=== PATIENT | female | born 1980 | race American Indian/Alaskan Native ===

== ENCOUNTER 2018-04-05 06:29 | Day surgery (SDC) | payer BC ==
[~2018-04-05 06:29] MED LIST: LACTATED RINGERS 1,000 ML IV SCH; VERSED IV NR
[2018-04-05] MEDS ORDERED: ANCEF/STERILE WATER 2 GM/20 ML IV NR (07:00)
[2018-04-05] MEDS ORDERED: NACL BACTERIOSTATIC INFILTRATI ONE (07:06)
[2018-04-05] MEDS ORDERED: DIPRIVAN 10 MG/ML IV ONE ×2 (07:30→08:51)
[2018-04-05] MEDS ORDERED: DILAUDID ONE ×2 (07:30→09:54)
[2018-04-05] MEDS ORDERED: XYLOCAINE MPF 2% ONE ×2 (07:30→08:53)
[2018-04-05] MEDS ORDERED: XYLOCAINE 1% 20 mL ONE (07:35)
[2018-04-05] MEDS ORDERED: ADRENALIN ONE (07:35)
[2018-04-05] MEDS ORDERED: MARCAINE 0.5% 0 ML INFILTRATI ONE (07:35)
--- NOTE | 2018-04-05 07:39 | Anesthesia Day of Surgery ---
Anesthesia Day of Surgery - Day of Surgery Patient Examined: Yes Patient H&P Reviewed: Yes Patient is NPO: Yes Beta Blockers: No Cardiac Clearance: No (n/a) Pulmonary Clearance: No (n/a)
--- NOTE | 2018-04-05 07:42 | Anesthesia Consultation ---
Anesthesia Consult and Med Hx Date of service: 04/05/18 - Airway Anesthetic Teeth Evaluation: Good ROM Head & Neck: Adequate Mental/Hyoid Distance: Adequate Mallampati Class: Class I Intubation Access Assessment: Good - Pulmonary Exam CTA: Yes - Cardiac Exam Cardiac Exam: RRR - Pre-Operative Health Status ASA Pre-Surgery Classification: ASA2 Proposed Anesthetic Plan: General - Pulmonary Hx Smoking: No Hx Asthma: No Hx Respiratory Symptoms: No SOB: No COPD: No Home Oxygen Therapy: No Hx Pneumonia: No Hx Sleep Apnea: No - Cardiovascular System Hx Hypertension: No Hx Coronary Artery Disease: No Hx Heart Attack/AMI: No Hx Angina: No Hx Percutaneous Transluminal Coronary Angioplasty (PTCA): No Hx Cardia Arrhythmia: No Hx Pacemaker: No Hx Internal Defibrillator: No Hx Valvular Heart Disease: No Hx Heart Murmur: No - Central Nervous System Hx Neuromuscular Disorder: No Hx Seizures: No CVA: No Hx Back Pain: No Hx Psychiatric Problems: No - Gastrointestinal Hx Ulcer: No Hx Gastroesophageal Reflux Disease: No - Endocrine Hx Renal Disease: No Hx End Stage Renal Disease: No Hx Cirrhosis: No Hx Liver Disease: No Hx Insulin Dependent Diabetes: No Hx Non-Insulin Dependent Diabetes: No Hx Thyroid Disease: No Hx Hypothyroidism: No Hx Hyperthyroidism: No - Hematic Hx Anemia: No Hx Sickle Cell Disease: No - Other Systems Hx Alcohol Use: Yes (SOCIALLY) Hx Substance Use: No Hx Cancer: No Hx Obesity: Yes
[2018-04-05] MEDS ORDERED: ZOFRAN IV NR (07:48)
[2018-04-05 08:09] LABS: Basophils % (Auto) 0.4 % (0.0-1.8); Eosinophils # (Auto) 0.1 K/mm3 (0.0-0.4); Eosinophils % (Auto) 1.6 % (0.0-4.3); Hematocrit 39.2 % (30.3-42.9); Hemoglobin 13.4 gm/dl (10.1-14.3); Lymphocytes # (Auto) 1.5 K/mm3 (1.2-5.4); Lymphocytes % (Auto) 35.8 % (13.4-35.0); Mean Corpuscular HGB Conc 34 % (30-34); Mean Corpuscular Hemoglobin 30 pg (28-32); Mean Corpuscular Volume 88 fl (79-97); Monocytes # (Auto) 0.3 K/mm3 (0.0-0.8); Monocytes % (Auto) 7.8 % (0.0-7.3); Platelet Count 194 K/mm3 (140-440); Red Blood Count 4.45 M/mm3 (3.65-5.03)
[2018-04-05] MEDS ORDERED: ZOFRAN ONE ×2 (08:35→09:58)
[2018-04-05] MEDS ORDERED: ePHEDrine SULFATE ONE ×2 (08:37→09:35)
[2018-04-05] MEDS ORDERED: SUBLIMAZE ONE (08:51)
[2018-04-05] MEDS ORDERED: DECADRON ONE (08:53)
[2018-04-05] MEDS ORDERED: ZEMURON IV ONE (08:53)
[2018-04-05] MEDS ORDERED: QUELICIN ONE (08:53)
[2018-04-05] MEDS ORDERED: ARTIFICIAL TEARS OPHTH OINT ONE (09:29)
[2018-04-05] MEDS ORDERED: ROBINUL ONE (09:31)
[2018-04-05] MEDS ORDERED: NEO SYNEPHRINE/NS Syringe(OR USE) IV ONE ×2 (09:32→10:32)
[2018-04-05] MEDS: DILAUDID IV PRN ×3 (09:52→10:20)
--- NOTE | 2018-04-05 10:02 | Operative Report ---
SERVICE: Plastic Surgery. PREOPERATIVE DIAGNOSIS: Keloid of chest. POSTOPERATIVE DIAGNOSIS: Keloid of chest. PROCEDURES: 1. Excision of keloid of chest, greater than 4 cm. 2. Adjacent tissue transfer of chest, approximately 100 sq cm. SURGEON: Ti Corona M.D. CHARGE ENTRY SPECIALIST: Valentin Gonzalez CSA. DESCRIPTION OF PROCEDURE: The patient was brought into the operating room and placed on the table in supine position. Following administration of general anesthesia, the chest was prepped with Betadine solution and draped in usual sterile manner. A #10 blade scalpel was used to circumferentially excise the tumor and sent to pathology as specimen. Extensive undermining was performed of the neck skin and chest skin allowing rotation and advancement of tissue across the defect to achieve closure without undue tension over a 10 mm flat AMBER drain. Closure was performed with interrupted and running subcuticular 2-0 Monocryl sutures. Mastisol, Steri-Strips, and sterile dressings applied. The patient tolerated the procedure well and returned to recovery room in stable condition. JOB# [id number] FTW/NTS
[2018-04-05] MEDS ORDERED: LACTATED RINGERS 0 ML ONE (10:11)
[2018-04-05 12:08] VITALS: BP 117/76
--- NOTE | 2018-04-05 14:27 | Post Anesthesia Evaluation ---
- Post Anesthesia Evaluation Patient Participated: Yes Airway Patent: Yes Stable Respiratory Function: Yes Nausea/Vomiting: No Temp > 96.8F: Yes Pain Manageable: Yes Adequeate Hydration: Yes Anesthesia Complications: No
== END 2018-04-05 12:00 | disposition home or self-care (01) ==
LOC: OR 06:29
PROVIDERS: ATTEND Plastic Surgery
DX: L91.0 Hypertrophic scar (principal); E66.9 Obesity, unspecified; Z90.710 Acquired absence of both cervix and uterus; Z79.899 Other long term (current) drug therapy; Z98.890 Other specified postprocedural states; Z68.36 Body mass index [BMI] 36.0-36.9, adult
CPT/HCPCS: 14000; 36415; 85025; 88305; J0690; J1100; J1170; J2250; J2405; J2704; J7120; J0171; J0330; J2370; J3010